=== PATIENT | male | born 2000 | race Caucasian/White ===

== ENCOUNTER → 2020-08-17 09:27 | Outpatient (BNVA) | payer OTHER, SELFPAY | PROVIDERS: Visit Provider Nurse Practitioner Family | DX: Z20.828 Contact with and (suspected) exposure to other viral communicable diseases (principal) | CPT/HCPCS: 87635 ==

== ENCOUNTER 2021-01-10 14:51 | Inpatient (IN) | payer SELFPAY ==
[2021-01-10 15:21] VITALS: BP 118/82; PULSE 80; RESP 16; TEMP 36.5; O2SAT 97; BMI 21.8
--- NOTE | 2021-01-10 15:30 | PC.NURSE ---
Patient in room, sitter at bedside, and all equipment removed from room. Patient is pleasant and cooperative.
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
[2021-01-10 16:06] LABS: Basophils % 0.5 %; Eosinophils # 0.2 10^3/uL (0.0-0.8); Eosinophils % 2.5 %; Hematocrit 48.4 % (42.0-52.0); Hemoglobin 16.6 g/dL (11.7-16.6); Lymphocytes # 1.6 10^3/uL (0.8-4.8); Lymphocytes % 18.6 %; Mean Corpuscular HGB Conc 34.3 g/dL (30.0-36.0); Mean Corpuscular Volume 90.5 fL (80-94); Mean Platelet Volume 9.5 fL (7.4-10.4); Monocytes # 0.6 10^3/uL (0.2-0.9); Monocytes % 7.4 %; Neutrophils # 5.97 10^3/uL (1.8-7.7); Neutrophils % 70.5 %; Nucleated Red Blood Cells % 0 %; Platelet Count 301 10^3/cmm (130-400); Red Blood Count 5.35 10^6/uL (4.1-5.3); Red Cell Distribution Width 12.7 % (12.1-15.1); White Blood Count 8.5 10^3/uL (4.0-10.0)
[2021-01-10 16:28] LABS: Alanine Aminotransferase 10 U/L (0-41); Alkaline Phosphatase 86 IU/L (40-130); Anion Gap 14.1 (5-19); Aspartate Amino Transferase 16 U/L (0-40); Blood Urea Nitrogen 6 mg/dL (6-20); Carbon Dioxide 24 mmol/L (22-29); Chloride 104 mmol/L (98-107); Globulin 2.8 g/dL (1.3-4.6); Glomerular Filtration Rate 120.9 mL/min (90-130); Glucose 92 mg/dL (65-115); Osmolality Calculated 283 mOsm/kg (285-295); Potassium 4.1 mmol/L (3.5-5.1); Sodium 138 mmol/L (136-145); Total Bilirubin 0.5 mg/dL (0.15-1.2); Total Protein 7.8 g/dL (6.6-8.7)
[2021-01-10 16:38] LABS: Acetaminophen < 5.0 ug/mL (10-30); Alcohol Level < 10 mg/dL (0-10); Salicylate < 0.3 mg/dL (3-10)
[2021-01-10 17:12] LABS: Amphetamines Screen Urine Negative (Negative); Barbiturates Screen Urine Negative (Negative); Benzodiazepines Screen Urine Negative (Negative); Cocaine Screen Urine Negative (Negative); Opiate Screen Urine Negative (Negative); PCP Screen Urine Negative (Negative); THC Screen Urine Positive (Negative)
[2021-01-10 17:48] VITALS: BP 124/74; PULSE 84; RESP 18; O2SAT 98
[2021-01-10 18:02] VITALS: BP 115/72; PULSE 60; RESP 17; TEMP 37; O2SAT 95
[2021-01-10] MEDS: nicotine 2 mg Gum BUCCAL (18:38)
[2021-01-10 19:50] VITALS: BP 98/48; PULSE 68; RESP 18; TEMP 36.8; O2SAT 97
[2021-01-11 06:00] VITALS: BP 120/62; PULSE 81; RESP 16; TEMP 36.8; O2SAT 97
[2021-01-11] MEDS: acetaminophen 325 mg Tablet 650 MG PO (07:46)
[2021-01-11] MEDS: nicotine 21 mg Patch 1 PATCH TRANSDERMA (07:59)
--- NOTE | 2021-01-11 08:46 | DCPLANNER ---
repertoire manager had message to schedule a follow up appointment for patient with ENT. repertoire manager emailed patients information to Ruma Ly and Rachel at [facility]. Patients information will be printed and reviewed. Clinic will call patient with appointment information.
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
[2021-01-11] MEDS: citalopram 20 mg Tablet 10 MG PO (13:15)
[2021-01-11 14:00] VITALS: BP 100/61; PULSE 74; RESP 16; TEMP 37.1; O2SAT 96
[2021-01-11] MEDS: nicotine 2 mg Gum BUCCAL ×2 (14:45→18:30)
[2021-01-11 19:53] VITALS: BP 133/81; PULSE 98; RESP 16; TEMP 36.8; O2SAT 99
[2021-01-12 06:00] VITALS: BP 100/49; PULSE 51; RESP 15; TEMP 36.8; O2SAT 97
[2021-01-12] MEDS: citalopram 20 mg Tablet 10 MG PO (07:54)
[2021-01-12] MEDS: nicotine 2 mg Gum BUCCAL ×3 (07:55→21:12)
[2021-01-12] MEDS: nicotine 21 mg Patch 1 PATCH TRANSDERMA (13:02)
[2021-01-12 14:00] VITALS: BP 117/58; PULSE 88; RESP 20; TEMP 37; O2SAT 94
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
[2021-01-12 22:00] VITALS: BP 117/74; PULSE 74; RESP 18; TEMP 36.5; O2SAT 96
[2021-01-13 06:00] VITALS: BP 101/66; PULSE 66; RESP 16; TEMP 36.8; O2SAT 97
[2021-01-13] MEDS: nicotine 2 mg Gum BUCCAL (06:16)
[2021-01-13] MEDS: citalopram 20 mg Tablet 10 MG PO ×2 (08:11→10:27)
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
[2021-01-13 10:29] VITALS: BP 101/66; PULSE 66; RESP 16; TEMP 36.8; O2SAT 97
--- NOTE | 2021-01-18 11:04 | DCPLANNER ---
VICTOR M THOMPSON contacted welfare case worker stating that clinic has made several attempts to reach patient to schedule an appointment. store group manager called phone number , left a message for patient to return manager of case phone call.
== END 2021-01-13 11:11 | disposition home or self-care (01) | DRG 881 ==
LOC: ER 16:56 → NP 17:13
PROVIDERS: Physician Assistant; Admitting Provider Psychiatry & Neurology Psychiatry; Emergency Provider Family Medicine; Visit Provider Psychiatry & Neurology Psychiatry
DX: F32.9 Major depressive disorder, single episode, unspecified (principal); R45.851 Suicidal ideations; F12.90 Cannabis use, unspecified, uncomplicated; Y04.2XXA Assault by strike against or bumped into by another person, initial encounter; Y93.9 Activity, unspecified; Z59.0 Homelessness; Z87.891 Personal history of nicotine dependence
CPT/HCPCS: 70450; 70486; 71101; 80053; 80306; 80307; 85025; 99285

== ENCOUNTER 2023-05-21 12:53 | Emergency (ER) | payer SELFPAY ==
--- NOTE | 2023-05-21 13:03 | ECG_ITS ---
[facility] Test Date: 2023-05-21 Pat Name: Arjun Garcia Department: Room: Gender: Male [employer] Cane Brakeman: : 2000 Requested By: Yusef Garg Order Number: [id number] Micky MD: Bart Sanchez M.D. Measurements Intervals [employer] Rate: 70 P: 16 [place]: 132 QRS: 34 QRSD: 84 T: 47 QT: 367 QTc: 399 Interpretive Statements SINUS RHYTHM Compared to ECG 02/21/2018 20:36:17 Sinus arrhythmia no longer present Electronically Signed On 05-21-2023 21:11:14 CDT by Bart Sanchez M.D. [id number]
[2023-05-21 13:04] VITALS: BMI 25.6
--- NOTE | 2023-05-21 13:26 | XRR_ITS ---
PROCEDURE INFORMATION: Exam: XR Chest Exam date and time: 05/21/2023 1:41 PM Age: 22 years old Clinical indication: Shortness of breath; Additional info: SOB TECHNIQUE: Imaging protocol: Radiologic exam of the chest. Views: 1 view. COMPARISON: CR XR ribs RT mn 3V w CXR1V [id number] 01/10/2021 4:03 PM FINDINGS: Lungs: Unremarkable. No consolidation. Pleural spaces: Unremarkable. No pleural effusion. No pneumothorax. Heart/Mediastinum: Unremarkable. No cardiomegaly. Bones/joints: Visualized osseous structures show no acute abnormality. Other findings: No significant change with previous exam. XR/XR chest 1V portable [id number] IMPRESSION: Single-view chest is without acute cardiopulmonary abnormality.
--- NOTE | 2023-05-21 13:40 | W.ED.SOB ---
HPI - SOB/Dyspnea General: Chief Complaint: Shortness of Breath/Dyspnea Stated Complaint: SOB Time Seen by Provider: 05/21/23 13:40 Source: patient Mode of arrival: ambulatory Limitations: no limitations History of Present Illness: HPI Narrative: Patient is a 22-year-old male with no known medical history here for complaints of anterior left-sided chest pain. Patient states pain began about a week ago. Significant other states he has had a mild dry cough over the past several days. He states pain is made worse with coughing and deep inhalation. There seems to be no effect on discomfort with leaning forward or lying down. He has not been running fevers. No rash. No recent injury or trauma to the chest. No hemoptysis. Denies lightheadedness, dizziness, palpitations. MD elicited complaint: shortness of breath, pain with inspiration and chest pain Onset (ago): day(s) Timing: intermittent Severity: mild Exacerbating factors: coughing and other (Deep inhalation) Relieving factors: nothing Associated symptoms: Reports chest pain; Deny abdominal pain, chest congestion, dizziness, extremity pain, fever(s), hemoptysis, lightheadedness, nausea, orthopnea, palpitations, syncope or vomiting Treatment prior to arrival: none Related Data: Home oxygen amount: none Review of Systems Const: Denies: fever(s), chills, body aches, fatigue or malaise Card: Reports: chest pain; Denies: palpitations, irregular heart rhythm, edema, swelling of feet/ankles, lightheadedness, syncope, pre-syncope, dyspnea on exertion, orthopnea, leg pain with exertion or acrocyanosis Resp: Reports: dyspnea, non-productive cough and pain on inspiration; Denies: productive cough, wheezing, stridor, change in phlegm color, hemoptysis or chest congestion GI: Denies: abdominal pain, nausea, vomiting or diarrhea Musc: Denies: neck pain, back pain, extremity pain or extremity swelling Skin/Breast: Denies: rash Neuro: Denies: headache(s) or dizziness PFSH ED PFSH: Medical History Borderline intellectual functioning Cannabis use disorder Generalized anxiety disorder Mild intellectual disability Moderate episode of recurrent major depressive disorder Nicotine dependence, cigarettes, uncomplicated Other stimulant dependence, in remission Psychiatric care Social History Smoking and tobacco status: never smoked Physical Exam Const: COMMON NORMALS: no acute distress, average body habitus, patient oriented x3, no limitations, healthy appearing, alert and well nourished ORIENTATION/CONSCIOUSNESS: Yes awake, Yes oriented to person, Yes oriented to place and Yes oriented to time HENMT: COMMON NORMALS: normocephalic and atraumatic HEAD & SCALP: normal to inspection, normocephalic and atraumatic Neck/C-Spine: COMMON NORMALS: full ROM, no lymphadenopathy, supple, no meningeal signs and no JVD Chest: COMMONS NORMALS: normal inspection of the chest OTHER: pain is somewhat reproducible to palpation of L anterior chest wall Resp: COMMON NORMALS: normal respiratory effort and clear to auscultation bilaterally AUSCULTATION: clear to auscultation bilaterally Cardio: COMMON NORMALS: no JVD, regular rate, regular rhythm and No murmurs present (Cardio) RATE: regular rate RHYTHM: regular rhythm GI: COMMON NORMALS: Normal to inspection, nondistended, normoactive bowel sounds present, Soft to palpation, non-tender, No hepatosplenomegaly present and no masses PALPATION: Yes Soft to palpation and Yes No hepatosplenomegaly present : COMMON NORMALS: Yes no CVA tenderness BLADDER/KIDNEY EXAM: Yes no CVA tenderness Back/Pelvis: COMMON NORMALS: no CVA tenderness and thoracic and lumbar spine normal to inspection Extremity: COMMON NORMALS: normal to inspection, no clubbing, cyanosis or edema, no calf tenderness and no pedal edema GENERAL: Yes normal exam except as noted Neuro: HERNAN COMA SCALE: document GCS findings Aladdin coma scale eye opening: Spontaneous Aladdin coma scale verbal response: Orientated Hernan coma scale motor response: Obey commands Aladdin coma scale total score: 15 COMMON NORMALS: patient oriented x3, moves all extremities, no focal motor deficits and no sensory deficits noted SENSORIUM/ORIENTATION: Yes alert, Yes oriented to person, Yes oriented to place and Yes oriented to time MENINGEAL SIGNS: Yes no meningeal signs Skin: COMMON NORMALS: no rashes or lesions noted GENERAL SKIN EXAM: no rashes or lesions noted Course Vital Signs: Vital signs: Vital Signs Temperature 98.0 F 05/21/23 14:12 Pulse Rate 75 09/26/23 14:12 Respiratory Rate 16 05/21/23 14:12 Blood Pressure 111/63 05/21/23 14:12 Pulse Oximetry 95 05/21/23 14:12 Oxygen Delivery Me thod Room Air 05/21/23 13:58 MDM - SOB/Dyspnea Medical Decision Making Patient here for left-sided chest pain over the past week or so. It has been associated with a mild nonproductive cough. Pain is somewhat reproducible with palpation. Vital signs are perfectly normal. His CXR is normal. EKG is normal. At this time I do not have any concerns for any emergent etiologies for his chest discomfort. There is nothing on his history or physical exam to suggest pericarditis, endocarditis, pulmonary emboli, dissection, or acute coronary syndrome. Return ED precautions given. Lab Data Labs/Radiology: Radiology Impressions Chest X-Ray 05/21/23 13:26 IMPRESSION: Single-view chest is without acute cardiopulmonary abnormality. All radiology interpretation(s) finalized by discharge Discharge Plan Discharge Patient Disposition: Home Clinical Impression: Non-cardiac chest pain Condition: Stable Prescriptions: No Action citalopram [Celexa] 20 mg tablet 20 mg PO DAILY Qty: 30 1RF cephalexin 500 mg capsule 500 mg PO TID 10 Days Qty: 30 0RF Discharge Orders: Discharge ED (Routine); Ordered 05/21/23 Ordered By: Nhi Toscano Activity Restrictions/Additional Instructions: As we discussed you may try anti-inflammatories and heat to see if this helps alleviate some discomfort. You need to return to the emergency department for worsening chest pain, shortness of breath, difficulty breathing, fevers, lightheadedness/dizziness/passing out episodes, or any other concerns you may have. Otherwise I would like you to follow-up with primary care later this week/early next week. I hope you begin to feel better soon. Coding Level of Care Code ED [employer] Assembly Supervisor for Idania Catalan
[2023-05-21 13:58] VITALS: BP 111/63; PULSE 75; RESP 16; TEMP 36.7; O2SAT 95
[2023-05-21 14:12] VITALS: BP 111/63; PULSE 75; RESP 16; TEMP 36.7; O2SAT 95
== END 2023-05-21 14:03 | disposition home or self-care (01) ==
PROVIDERS: Emergency Provider Physician Assistant
DX: R07.89 Other chest pain (principal)
CPT/HCPCS: 71045; 93005; 99284